=== PATIENT | female | born 1970 | race Two or more races ===

== ENCOUNTER 2024-07-21 14:10 | Emergency (ER) | payer BC, OTHER ==
[~2024-07-21] VITALS: Ht 152.4 cm; Wt 77.1 kg
[2024-07-21] MEDS ORDERED: ZEPBOUND12.5 MG/0. SQ (14:39)
[2024-07-21] MEDS ORDERED: AMITRIPTYLINE H75 MG PO (14:40)
[2024-07-21] MEDS ORDERED: QUETIAPINE FUMA50 M1 PO (14:40)
[2024-07-21] MEDS ORDERED: DIAZEPAM10 MG PO (14:41)
[2024-07-21] MEDS ORDERED: ORPHENADRINE CITRATE 30 MG/ML AMPUL IM STA (16:34)
[2024-07-21] MEDS ORDERED: DEXAMETHASONE SODIUM PHOSPHATE 4 MG/ML VIAL IM STA (16:35)
[2024-07-21] MEDS ORDERED: GENTAMICIN SULFATE 40 MG/ML VIAL IM STA (16:44)
[2024-07-21] MEDS ORDERED: DEXAMETHASONE SODIUM PHOSPHATE 4 MG/ML VIAL ONE (17:03)
[2024-07-21] MEDS ORDERED: ORPHENADRINE CITRATE 30 MG/ML AMPUL ONE (17:03)
[2024-07-21] MEDS ORDERED: GENTAMICIN SULFATE 40 MG/ML VIAL ONE (17:03)
== END 2024-07-21 19:31 | disposition home or self-care (01) ==
LOC: ER 14:12
DX: S90.212A Contusion of left great toe with damage to nail, initial encounter (principal); S30.0XXA Contusion of lower back and pelvis, initial encounter; W18.39XA Other fall on same level, initial encounter; Y93.89 Activity, other specified; Y92.89 Other specified places as the place of occurrence of the external cause; Y99.9 Unspecified external cause status; M51.36 Other intervertebral disc degeneration, lumbar region; Z88.0 Allergy status to penicillin